=== PATIENT | female | born 1975 | race Hispanic/Latino ===

== ENCOUNTER 2022-03-24 18:38 | Emergency (ER) | payer OTHER ==
[~2022-03-24] VITALS: Ht 152.4 cm; Wt 77.1 kg
[2022-03-24] MEDS ORDERED: ULTRAM 50MG50 MG PO (22:07)
== END 2022-03-24 22:01 | disposition home or self-care (01) ==
LOC: ER 18:45
DX: R07.89 Other chest pain (principal); R10.9 Unspecified abdominal pain; S50.11XA Contusion of right forearm, initial encounter; V43.52XA Car driver injured in collision with other type car in traffic accident, initial encounter; Y92.488 Other paved roadways as the place of occurrence of the external cause
CPT/HCPCS: 70450; 71250; 74176; 81025